=== PATIENT | female | born 1935 | race Caucasian/White ===

== ENCOUNTER 2021-06-12 16:34 | Outpatient (CLI) | payer MEDICARE, OTHER, SELFPAY | END 2021-06-12 23:59 | disposition short-term general hospital (02) | PROVIDERS: Referring Provider Physician Assistant; Visit Provider Physician Assistant | DX: U07.1 COVID-19 (principal) | CPT/HCPCS: 87635; U0003; U0005 ==

== ENCOUNTER 2021-06-17 11:17 | Outpatient (CLI) | payer MEDICARE, OTHER, SELFPAY ==
[2021-06-17 11:55] VITALS: BP 140/69; PULSE 64; RESP 16; TEMP 36.4; O2SAT 100; BMI 23.4
[2021-06-17] MEDS: 0.9% Saline Lock 10 ML Syringe IV (11:58)
[2021-06-17 12:40] VITALS: BP 142/66; PULSE 59; RESP 16; TEMP 36.5; O2SAT 100
[2021-06-17 13:18] VITALS: BP 141/78; PULSE 66; RESP 16; TEMP 36.4; O2SAT 100
== END 2021-06-17 23:59 | disposition home or self-care (01) ==
LOC: MS3OUT 11:18 → MS3 11:18
PROVIDERS: Referring Provider Nurse Practitioner Acute Care; Visit Provider Nurse Practitioner Acute Care
DX: U07.1 COVID-19 (principal)
CPT/HCPCS: J7050; M0243; A4216; Q0244